=== PATIENT | female | born 1970 | race Caucasian/White ===

== ENCOUNTER 2016-08-20 08:32 | Inpatient (IN) | payer OTHER ==
[~2016-08-20] VITALS: Ht 154.9 cm; Wt 70.5 kg
[~2016-08-20 08:32] MED LIST: ECO81 PO; METFORMIN HCL500 MG PO; TAMOXIFEN CITRA PO
--- NOTE | 2016-08-20 08:49 | NUR ---
PT BIB FAMILY C/C SYNCOPE EPISODE LIGHT OUT EXAMINER STS DIZZINESS X [address] SAV NICHOLSON
--- NOTE | 2016-08-20 09:18 | NUR ---
PT TAKEN TO RADIOLOGY FOR XRAY
[2016-08-20 09:24] LABS: BASOPHIL % 0.3 % (0-2); PLATELET COUNT 331 x10^3mcL (130-400)
--- NOTE | 2016-08-20 09:25 | NUR ---
BACK FROM XRAY
[2016-08-20 09:50] LABS: CALCIUM 9.1 mg/dL (8.5-10.1); CHLORIDE SERUM 104 mmol/L (98-107); CREATININE SERUM 0.7 mg/dL (0.6-1.0); GFR1 > 60 mL/min; GLUCOSE SERUM 129 mg/dL (74-106); SODIUM SERUM 139 mmol/L (136-145)
[2016-08-20 09:54] LABS: ALKALINE PHOSPHATASE 80 U/L (46-116); ALT/SGPT 42 U/L (14-59); AST/SGOT 22 U/L (15-37); BILIRUBIN TOTAL 0.36 mg/dL (0.20-1.00); LIPASE 248 IU/L (73-393); TOTAL PROTEIN, SERUM 7.7 g/dL (6.4-8.2)
[2016-08-20 09:55] LABS: UA SPECIFIC GRAVITY 1.015 (1.005-1.035); microscopic required? YES; urine erythrocyte TRACE (NEGATIVE)
--- NOTE | 2016-08-20 10:59 | NUR ---
PT TAKEN TO RADILOLOGY FOR CT
--- NOTE | 2016-08-20 11:23 | NUR ---
BACK FROM CT
--- NOTE | 2016-08-20 11:50 | NUR ---
PLEASE ENTER FULL NAMES OF AURIST/RN Patient data collected by (AURIST):MACI WINSLOW Assessment reviewed and completed by (RN):KAN EVANS
[2016-08-20] MEDS ORDERED: METFORMIN HCL500 MG PO (12:19)
[2016-08-20 13:19] LABS: AMPHETAMINE QUAL UR NONE DETECTED (NEG <=1000)
[2016-08-20 13:21] LABS: CHOLESTEROL/HDL RATIO 3.4
[2016-08-20 13:24] LABS: T3 TOTAL 1.45 ng/mL
[2016-08-20 13:31] LABS: FREE T4 1.14 ng/dL (0.76-1.46); FREE THYROXINE INDEX 3.2 ug/dL (1.4-4.5); T4(THYROXINE) 8.9 ug/dL (4.7-13.3)
--- NOTE | 2016-08-20 13:37 | NUR ---
PT ADMIT TO TELE ROOM 252B GAVE REPORT TO DON
[2016-08-20 14:17] VITALS: BP 127/79
--- NOTE | 2016-08-20 15:15 | NUR ---
US-A/V IN PROGRESS
--- NOTE | 2016-08-20 15:16 | NUR ---
PATIENT TRANSFERRED FROM ED VIA [facility] BY ED RN, ABLE TO TRANSFER SELF FROM [facility] TO BED WITH SLOW GAIT, ABLE TO VERBALIZE NEEDS WITH CLEAR AND COHERENT SPEECH, PERRLA, FULL ACTIVE ROM, DENIES ELISE, C/O DIZZINESS, WAS DX W/VERTIGO X 4YEARS AGO, BUT NEW ONSET OF DIZZINESS STARTED 3 WEEKS AGO, PT STOPPED DRIVING HER CARE, TODAY SHE EXPERIENCED SYNCOPAL EPISODE WITH LOC, BLURRED VISION, AND TINNITUS AT JU EARS, DENIES HEARING VOICES, PLACED ON TELE #18 SR ON MONITOR, DENIES ANY HEART RELATED PAIN OR DISCOMFORT, ACTIVE BOWEL SOUNDS X4 QUADS, DENIES GI DISTRESS, PALPABLE PERIPHERAL PULSES, CAP REFILL < 3 SECONDS, ALL EXTREMITIES WARM TO TOUCH, SKIN CDI, SURGICAL SCAR AT LEFT CHEST FROM MASTECTOMY IN 1999, IV 20G & 22G AT [facility], NS INFUSION STARTED AT 110ML/HR, AT BEDSIDE. ORIENTED TO ROOM AND CALL LIGHT, WILL CONTINUE TO PROVIDE CARE.
--- NOTE | 2016-08-20 19:15 | NUR ---
ABLE TO AMBULATE TO RESTROOM WITH SLOW GAIT, STAND BY ASSISTANCE PROVIDED, DENIES N&V, CONTINUES TO FEEL DIZZY, TOLERATED MEALS WITHOUT GI DISTRESS, METFORMIN DOSE IS ON HOLD X 48HRS, NO OTHER SIGNIFICANT CHANGES NOTED, CARE ENDORSED TO NIGHT NURSE.
--- NOTE | 2016-08-20 19:33 | NUR ---
PT. AWAKE, ALERT, SITTING AT EDGE OF BED W/ AT BEDSIDE. SHE IS ORIENTED X4. DENIES HEADACHE BUT HAS C/O DIZZINESS, DECREASED SINCE EARLIER PER PT. DENIES ANY BLURRED VISION. BREATH SOUNDS CLEAR THROUGHOUT LUNG JIANG, RESP. EVEN, UNLABORED. NO SOB NOTED. NSR ON TELE 18. DENIES CHESTPAIN OR DISCOMFORT. NO EDEMA NOTED TO EXTREMITIES. PEDAL PULSES STRONG JU. IVF NS INFUSING WELL TO RAC. CALL LIGHT WITHIN REACH. PT. AND ENCOURAGED TO HAVE HER CALL FOR HELP FOR ANY ACTIVITIES GETTING OOB TO REDUCE RISK OF FALLING.
[2016-08-20 19:45] VITALS: BP 127/79
[2016-08-20 20:42] VITALS: BP 115/75
--- NOTE | 2016-08-21 03:21 | NUR ---
PT. RESTING QUIETLY, DENIES ANY PAIN OR DISCOMFORT. NO SOB THUS FAR. CALL LIGHT REMAINS WITHIN REACH.
[2016-08-21 05:07] VITALS: BP 99/54
[2016-08-21 06:07] LABS: BASOPHIL % 0.3 % (0-2); PLATELET COUNT 282 x10^3mcL (130-400)
[2016-08-21 06:17] LABS: CALCIUM 8.3 mg/dL (8.5-10.1); CHLORIDE SERUM 105 mmol/L (98-107); CREATININE SERUM 0.7 mg/dL (0.6-1.0); GFR1 > 60 mL/min; GLUCOSE SERUM 112 mg/dL (74-106); MAGNESIUM 1.9 mg/dL (1.8-2.4); PHOSPHOROUS 3.1 mg/dL (2.5-4.9); POTASSIUM SERUM 3.9 mmol/L (3.5-5.1); SODIUM SERUM 141 mmol/L (136-145)
[2016-08-21 06:38] LABS: RED CELL DISTRIBUTION WIDTH 15.4 % (11.5-14.5)
--- NOTE | 2016-08-21 07:26 | NUR ---
PT. SLEPT MOSTLY THROUGHOUT NIGHT. NO C/O PAIN THROUGHOUT SHIFT. DENIES ANY DIZZINESS THIS MORNING. NO RESP. DISTRESS, NO SOB. PT. CARE ENDORSED OVER TO INCOMING NURSE.
--- NOTE | 2016-08-21 07:30 | NUR ---
RECEIVED PT IN NO ACUTE DISTRESS. DENIES DIZZINESS AT THIS TIME. C/O INTERMITTENT BLURRED VISION. REMINDED PT TO CALL FOR ASSISTANCE. RESP EVEN AND UNLABORED ON RA. NO SOB NOTED. NO C/O PAIN. IVF INFUSING. BED IN LOWEST POSITION, CALL LIGHT WITHIN REACH. WILL CONTINUE TO MONITOR.
[2016-08-21 09:24] VITALS: BP 109/63
[2016-08-21 09:58] VITALS: BP 109/63
--- NOTE | 2016-08-21 11:56 | NUR ---
PT RESTING IN BED. NO ACUTE DISTRESS. C/O MILD DIZZINESS BUT TOLERABLE AT THIS TIME. IVF INFUSING. WILL CONTINUE TO MONITOR.
[2016-08-21 13:03] VITALS: BP 117/72
[2016-08-21 16:46] VITALS: BP 123/75
--- NOTE | 2016-08-21 18:28 | NUR ---
PT RESTING IN BED. NO ACUTE DISTRESS. AMBULATED IN HALLWAY X2 EARLIER. C/O MILD DIZZINESS BUT TOLERABLE. IVF INFUSING. FAMILY AT BEDSIDE. BED IN LOWEST POSITION, CALL LIGHT WITHIN REACH. WILL ENDORSE TO INCOMING SHIFT.
--- NOTE | 2016-08-21 19:28 | NUR ---
AAO X 4. AMBULATING IN ROOM. DENIES HAVING DIZZINESS OR HEADACHE AT THIS TIME. DENIES HAVING BLURRY VISION AT THIS TIME, BUT STATED STILL HAVING EPISODES OF BLURRY VISION. BREATHING EVEN AND UNLABORED ON ROOM AIR. SINUS RHYTHM ON TELE, HR 70/MIN. DENIES HAVING PAIN. IVF OF NS AT 110ML/HR.
[2016-08-21 22:09] VITALS: BP 110/68
--- NOTE | 2016-08-22 01:45 | NUR ---
EYES CLOSED, BREATHING EVEN AND UNLABORED. SINUS RHYTHM ON TELE. CALL LIGHT WITHIN EASY REACH. UPPER SIDE RAILS KEPT RAISED.
[2016-08-22 06:19] VITALS: BP 107/69
--- NOTE | 2016-08-22 06:33 | NUR ---
SLEPT THROUGH MOST OF SHIFT. STATED FEELING COMFORTABLE AT THIS TIME. AWAKE AND ALERT, STATED HAVING NO BLURRY VISION AT THIS TIME. STATED HAVING A LITTLE DIZZINESS.
--- NOTE | 2016-08-22 06:44 | NUR ---
SINUS RHYTHM ON TELE. TELE DISCONTINUED. TELEBOX RETURNED TO MONITOR STATION.
--- NOTE | 2016-08-22 07:31 | NUR ---
RECEIVED PT IN NO ACUTE DISTRESS. C/O MILD DIZZINESS BUT TOLERABLE. INTERMITTENT BLURRY VISION. RESP EVEN AND UNLABORED ON RA. NO SOB NOTED. DENIES PAIN. IVF INFUSING. BED IN LOWEST POSITON, CALL LIGHT WITHIN REACH. WILL CONTINUE TO MONITOR.
[2016-08-22 09:39] VITALS: BP 120/71
[2016-08-22] MEDS ORDERED: MECLIZINE HCL12.5 MG PO (10:13)
[2016-08-22] MEDS ORDERED: ZOF4 PO (10:14)
[2016-08-22] MEDS ORDERED: LIPI10 PO (10:15)
[2016-08-22] MEDS ORDERED: BG MC (10:24)
[2016-08-22 10:41] VITALS: BP 120/71
--- NOTE | 2016-08-22 11:23 | NUR ---
PT DISCHARGED TO HOME IN NO ACUTE DISTRESS. AWAKE, ALERT, AND ORIENTED. VSS. RX GIVEN. DISCHARGE EDUCATION PROVIDED, PT VERBALIZED UNDERSTANDING. WRITTEN DISCHARGE INFORMATION ALSO PROVIDED. INSTRUCTED PT TO FOLLOW UP WITH PCP. BELONGINGS WITH PT. IV DC'D INTACT. ALESIA LEDESMA ACCOMPANIED PT TO [facility].
== END 2016-08-22 11:23 | disposition home or self-care (01) | DRG 204 ==
LOC: ED 08:32 → DU 13:00 → MU 13:00 → DU 13:55 → MU 08-22 06:46
PROVIDERS: Emergency Medicine; ADMIT Family Medicine
DX: I95.1 Orthostatic hypotension (principal); J96.00 Acute respiratory failure, unspecified whether with hypoxia or hypercapnia; G90.9 Disorder of the autonomic nervous system, unspecified; E11.51 Type 2 diabetes mellitus with diabetic peripheral angiopathy without gangrene; D68.69 Other thrombophilia; E86.0 Dehydration; F45.8 Other somatoform disorders; I10 Essential (primary) hypertension; E78.5 Hyperlipidemia, unspecified; Z79.82 Long term (current) use of aspirin; Z85.3 Personal history of malignant neoplasm of breast; Z79.84 Long term (current) use of oral hypoglycemic drugs
CPT/HCPCS: 36600; 80307; 82962; 83880; 84439; J7030; Q0092; Q9967

== ENCOUNTER 2016-12-22 06:00 | Emergency (ER) | payer OTHER ==
[~2016-12-22 06:00] MED LIST changes: +BG MC; +LIPI10 PO; +MECLIZINE HCL12.5 MG PO; +ZOF4 PO
[2016-12-22 06:48] LABS: BASOPHIL % 0.3 % (0-2); PLATELET COUNT 307 x10^3mcL (130-400)
[2016-12-22 07:01] LABS: CALCIUM 8.7 mg/dL (8.5-10.1); CARBON DIOXIDE 28.3 mmol/L (21-32); CHLORIDE SERUM 105 mmol/L (98-107); CREATININE SERUM 0.7 mg/dL (0.6-1.0); GFR1 > 60 mL/min; GLUCOSE SERUM 106 mg/dL (74-106); SODIUM SERUM 140 mmol/L (136-145)
[2016-12-22 07:05] LABS: ALBUMIN 3.7 g/dL (3.4-5.0); ALKALINE PHOSPHATASE 70 U/L (46-116); ALT/SGPT 32 U/L (14-59); AST/SGOT 18 U/L (15-37); BILIRUBIN TOTAL 0.2 mg/dL (0.20-1.00); CHOLESTEROL 178 mg/dL (<200); CHOLESTEROL/HDL RATIO 3.7; HDL CHOLESTEROL 48 mg/dL (40-60); LIPASE 283 IU/L (73-393); TOTAL PROTEIN, SERUM 7.4 g/dL (6.4-8.2); TRIGLYCERIDES 153 mg/dL (<150)
[2016-12-22 07:19] LABS: FREE T4 1.11 ng/dL (0.76-1.46); FREE THYROXINE INDEX 2.8 ug/dL (1.4-4.5); T4(THYROXINE) 7.2 ug/dL (4.7-13.3)
[2016-12-22 07:31] LABS: UA SPECIFIC GRAVITY <=1.005 (1.005-1.035); microscopic required? YES; urine erythrocyte TRACE (NEGATIVE)
[2016-12-22 08:31] VITALS: BP 109/69
== END 2016-12-22 09:05 | disposition home or self-care (01) ==
LOC: ED 06:00
PROVIDERS: Specialist
DX: N39.0 Urinary tract infection, site not specified (principal); R00.2 Palpitations; Z85.3 Personal history of malignant neoplasm of breast; Z90.12 Acquired absence of left breast and nipple
CPT/HCPCS: 82962; 83880; 84439; J0696; Q0092

== ENCOUNTER 2017-02-11 09:16 | Emergency (ER) | payer OTHER ==
[2017-02-11 10:01] LABS: CALCIUM 8.9 mg/dL (8.5-10.1); CARBON DIOXIDE 28.3 mmol/L (21-32); CHLORIDE SERUM 104 mmol/L (98-107); CREATININE SERUM 0.6 mg/dL (0.6-1.0); GFR1 > 60 mL/min; GLUCOSE SERUM 100 mg/dL (74-106); POTASSIUM SERUM 4.3 mmol/L (3.5-5.1); SODIUM SERUM 140 mmol/L (136-145)
[2017-02-11 10:24] LABS: BASOPHIL % 0.3 % (0-2); PLATELET COUNT 293 x10^3mcL (130-400)
[2017-02-11 10:27] LABS: RED CELL DISTRIBUTION WIDTH 15.2 % (11.5-14.5)
[2017-02-11 11:24] LABS: microscopic required? NO
[2017-02-11 11:35] LABS: UA SPECIFIC GRAVITY <=1.005 (1.005-1.035); urine erythrocyte NEGATIVE (NEGATIVE)
[2017-02-11 12:10] VITALS: BP 132/71
== END 2017-02-11 12:11 | disposition home or self-care (01) ==
LOC: ED 09:16
PROVIDERS: Emergency Medicine
DX: R10.9 Unspecified abdominal pain (principal); M54.9 Dorsalgia, unspecified; E11.9 Type 2 diabetes mellitus without complications; Z79.84 Long term (current) use of oral hypoglycemic drugs; Z90.12 Acquired absence of left breast and nipple; Z85.3 Personal history of malignant neoplasm of breast
CPT/HCPCS: 36415